=== PATIENT | female | born 1940 | race Caucasian/White ===

== ENCOUNTER → 2018-12-06 | Outpatient (CLI) | payer OTHER ==
[~2018-12-06] MED LIST: AMIO200T5 PO; APIX5TAB PO; ATOR40TA71 PO; FURO40TA5 PO; INSLAN SQ; IRON1CAP31 PO; LEVO88TA7 PO; METO-391 PO; VERA120C3 PO
== END | disposition home or self-care (01) ==
LOC: SHCH 11:10
PROVIDERS: ATTEND Internal Medicine Cardiovascular Disease
DX: I51.7 Cardiomegaly (principal); I48.0 Paroxysmal atrial fibrillation; Z95.1 Presence of aortocoronary bypass graft; Z95.0 Presence of cardiac pacemaker
CPT/HCPCS: 93306